=== PATIENT | female | born 1965 | race Hispanic/Latino ===

== ENCOUNTER → 2019-02-14 | Outpatient (CLI) | payer BC ==
--- NOTE | 2019-02-19 08:42 | Diagnostic Imaging Report ---
#[id number] - [id number] #BILATERAL DIGITAL SCREENING MAMMOGRAM WITH CAD: 02/14/2019 CLINICAL: Routine screening. No prior exams were available for comparison. Current study contains 4 films. The tissue of both breasts is heterogeneously dense. This may lower the sensitivity of mammography. Current study was also evaluated with a Computer Aided Detection (CAD) system. Benign appearing calcifications are noted bilaterally. No significant masses, calcifications, or other findings are seen in either breast. IMPRESSION: BENIGN There is no mammographic evidence of malignancy. A 1 year screening mammogram is recommended. The patient will be notified by letter of the results. DEB SPENCER M.D. ct/penrad:02/16/2019 15:43:04 [employer]: Maia EWING)(Amrita), [facility] letter sent: Normal Exam Mammogram BI-RADS: 2 Benign
== END ==
LOC: MAMMO 08:53
PROVIDERS: ATTEND Internal Medicine
DX: Z12.31 Encounter for screening mammogram for malignant neoplasm of breast (principal)
CPT/HCPCS: 77067

== ENCOUNTER 2024-06-16 06:39 | Emergency (ER) | payer BC ==
[~2024-06-16] VITALS: Ht 162.6 cm; Wt 90.7 kg
[2024-06-16 06:47] VITALS: PULSE 89; RESP 18; TEMP 98.3; O2SAT 97
[2024-06-16 07:14] LABS: BASOPHILS # (AUTO) 0.1 (0.0-0.1); BASOPHILS % 0.3 % (0.0-1.0); EOSINOPHILS # (AUTO) 0.1 (0.0-0.4); EOSINOPHILS % 0.4 % (0.0-6.0); HEMATOCRIT 44.2 % (34.2-44.1); HEMOGLOBIN 14.1 g/dL (12.0-16.0); LYMPHOCYTES # (AUTO) 1.3 (1.0-3.2); MEAN CORPUSCULAR HEMOGLOBIN 27.8 pg (28-32); MEAN CORPUSCULAR HGB CONC 31.9 g/dL (31-35); MEAN CORPUSCULAR VOLUME 87.2 fL (81-99); MONOCYTES # (AUTO) 0.9 (0.2-0.8); MONOCYTES % 5.1 % (4.4-11.3); NEUTROPHILS # (AUTO) 14.3 (2.1-6.9); NEUTROPHILS % 85.6 % (38.7-80.0); PLATELET COUNT 171 x10e3/uL (140-360); RED BLOOD COUNT 5.07 x10e6/uL (3.6-5.1); RED CELL DISTRIBUTION WIDTH 13.9 % (11.7-14.4); WHITE BLOOD COUNT 16.67 x10e3/uL (4.8-10.8)
[2024-06-16 07:35] LABS: ALBUMIN 3.6 g/dL (3.5-5.0); ALBUMIN/GLOBULIN RATIO 0.7 (0.8-2.0); ANION GAP 14.3 mmol/L (8-16); BILIRUBIN,TOTAL 1.1 mg/dL (0.2-1.2); CALCIUM 9.7 mg/dL (8.4-10.2); CREATININE, SERUM 1.01 mg/dL (0.57-1.11); TOTAL PROTEIN 8.6 g/dL (6.5-8.1)
[2024-06-16 07:36] LABS: POTASSIUM 3.3 mmol/L (3.5-5.1)
[2024-06-16] MEDS ORDERED: CEFDINIR300 MG PO (08:01)
== END 2024-06-16 10:52 | disposition home or self-care (01) ==
LOC: ER 06:44
DX: L03.115 Cellulitis of right lower limb (principal); G35 Multiple sclerosis
CPT/HCPCS: 36415; 72193; 80053; 85025; 93971; 99283; J0696

== ENCOUNTER 2024-12-20 08:26 | Emergency (ER) | payer BC, MEDICARE ==
[~2024-12-20] VITALS: Ht 162.6 cm; Wt 90.7 kg
[~2024-12-20 08:26] MED LIST: CEFDINIR300 MG PO; NORVASC5 MG PO; ZYVOX600 MG PO
[2024-12-20 08:49] VITALS: TEMP 98.7
[2024-12-20 10:57] VITALS: PULSE 81; RESP 16; O2SAT 99
== END 2024-12-20 11:09 | disposition home or self-care (01) ==
LOC: ER 09:00
DX: M25.562 Pain in left knee (principal); W01.0XXA Fall on same level from slipping, tripping and stumbling without subsequent striking against object, initial encounter; Y93.01 Activity, walking, marching and hiking; Y92.89 Other specified places as the place of occurrence of the external cause; G35 Multiple sclerosis
CPT/HCPCS: 99283

== ENCOUNTER 2025-04-17 20:00 | Emergency (ER) | payer BC, MEDICARE ==
[~2025-04-17] VITALS: Ht 162.6 cm; Wt 90.7 kg
[2025-04-17 20:30] VITALS: TEMP 98.7
[2025-04-17] MEDS ORDERED: SODIUM CHLORIDE FLUSH 10 ML SYR IV PRN (20:45)
[2025-04-17 20:48] LABS: BASOPHILS % 0.4 % (0.0-1.0); EOSINOPHILS % 2.8 % (0.0-6.0); LYMPHOCYTES % 25.8 % (18.0-39.1); MONOCYTES % 6.2 % (4.4-11.3); NEUTROPHILS % 64.4 % (38.7-80.0); RED CELL DISTRIBUTION WIDTH 13.5 % (11.7-14.4)
[2025-04-17 21:02] LABS: EST GLOMERULAR FILTRATION RATE 72.0 ML/MIN (>=60)
[2025-04-17] MEDS ORDERED: IOPAMIDOL 370 MG/ML 100 ML INFUS..BTL INJ ONE (21:32)
[2025-04-17] MEDS: ONDANSETRON HCL INJ 2MG/ML 2ML 2 MG/ML VIAL IV STA (21:49)
[2025-04-17] MEDS: SODIUM CHLORIDE 0.9% 1000ML 1,000 ML IV ONE (21:50)
[2025-04-17] MEDS: Morphine 4mg INJECTION 4 MG/ML INJ IV ONE (21:50)
[2025-04-17 22:27] LABS: LEUKOCYTE ESTERASE ,URINE SMALL (NEGATIVE); PROTEIN,URINE DIPSTICK NEGATIVE (NEGATIVE); URINE UROBILINOGEN 0.2 mg/dL (0.2 - 1)
[2025-04-17 22:30] VITALS: PULSE 68; RESP 15
[2025-04-17 22:49] LABS: EPITHELIAL CELLS,URINE MANY /LPF
[2025-04-17] MEDS ORDERED: ONDANSETRON ODT4 MG SL (23:28)
[2025-04-17] MEDS ORDERED: CEFDINIR300 MG PO (23:28)
[2025-04-17 23:44] VITALS: BP 156/91; PULSE 71; RESP 16; TEMP 98.7; O2SAT 100
== END 2025-04-17 23:40 | disposition home or self-care (01) ==
LOC: ER 20:52
DX: R10.12 Left upper quadrant pain (principal); R10.11 Right upper quadrant pain; N39.0 Urinary tract infection, site not specified; G35 Multiple sclerosis; R94.31 Abnormal electrocardiogram [ECG] [EKG]
CPT/HCPCS: 36415; 74177; 80053; 81001; 83690; 84484; 85025; 93005; 99284; J2405; J2470; J7030; Q9967; J2270

== ENCOUNTER 2025-04-25 10:46 | Emergency (ER) | payer BC, MEDICARE ==
[~2025-04-25] VITALS: Ht 162.6 cm; Wt 90.7 kg
[~2025-04-25 10:46] MED LIST changes: +ONDANSETRON ODT4 MG SL
[2025-04-25 13:00] VITALS: PULSE 77; RESP 18; TEMP 98
[2025-04-25 13:04] LABS: BASOPHILS % 0.5 % (0.0-1.0); EOSINOPHILS % 3.5 % (0.0-6.0); LYMPHOCYTES % 22.0 % (18.0-39.1); MONOCYTES % 8.3 % (4.4-11.3); NEUTROPHILS % 65.6 % (38.7-80.0); RED CELL DISTRIBUTION WIDTH 13.3 % (11.7-14.4)
[2025-04-25 13:26] LABS: EST GLOMERULAR FILTRATION RATE 88.0 ML/MIN (>=60)
[2025-04-25 13:35] LABS: INR 0.97
[2025-04-25 13:38] LABS: LEUKOCYTE ESTERASE ,URINE NEGATIVE (NEGATIVE); PROTEIN,URINE DIPSTICK NEGATIVE (NEGATIVE); URINE UROBILINOGEN 0.2 mg/dL (0.2 - 1)
[2025-04-25] MEDS: SODIUM CHLORIDE 0.9% 1000ML 1,000 ML IV STA (13:40)
[2025-04-25 13:57] LABS: EPITHELIAL CELLS,URINE FEW /LPF; WBC,URINE (MAN) 0-5 /HPF (0-5)
[2025-04-25 16:13] VITALS: BP 168/86; PULSE 80; RESP 18; TEMP 98.2; O2SAT 96
== END 2025-04-25 16:15 | disposition home or self-care (01) ==
LOC: ER 11:26
DX: R10.9 Unspecified abdominal pain (principal); R11.0 Nausea; G35 Multiple sclerosis; R94.31 Abnormal electrocardiogram [ECG] [EKG]
CPT/HCPCS: 36415; 71045; 80053; 81001; 83735; 84484; 85025; 85379; 85610; 85730; 87086; 93005; 99284; J7030